=== PATIENT | female | born 1955 | race Caucasian/White ===

== ENCOUNTER 2018-08-24 19:11 | Emergency (ER) | payer OTHER ==
[2018-08-24] MEDS: KETOROLAC 60 MG INJ IM (21:04)
== END 2018-08-24 22:48 | disposition home or self-care (01) ==
LOC: FTE 19:11
DX: M50.320 Other cervical disc degeneration, mid-cervical region, unspecified level (principal); M54.12 Radiculopathy, cervical region; I10 Essential (primary) hypertension; Z87.891 Personal history of nicotine dependence
CPT/HCPCS: 72125; 96372; 99285-25

== ENCOUNTER 2018-11-21 01:25 | Emergency (ER) | payer OTHER ==
[2018-11-21 05:44] LABS: ADD MAN DIFF? NO
[2018-11-21 05:51] LABS: WHITE BLOOD COUNT 7.2 10^3/ul (4.8-10.8)
[2018-11-21 05:51] LABS: BASOPHIL # 0.1 10^3/ul (0.0-0.1); BASOPHILS % 0.8 % (0.0-2.0); EOSINOPHILS # 0.2 10^3/ul (0.0-0.5); EOSINOPHILS % 2.4 % (0.0-7.0); HEMATOCRIT 40.5 % (37.0-47.0); HEMOGLOBIN 13.1 g/dl (12.0-16.0); LYMPHOCYTES % 42.2 % (15.0-51.0); MEAN CORPUSCULAR HEMOGLOBIN 29.3 pg (29.0-33.0); MEAN CORPUSCULAR HGB CONC 32.3 g/dl (32.0-37.0); MEAN CORPUSCULAR VOLUME 90.6 fl (82.0-101.0); MEAN PLATELET VOLUME 11.2 fl (7.4-10.4); MONOCYTE # 0.4 10^3/ul (0.3-0.9); MONOCYTES % 5.6 % (0.0-11.0); NEUTROPHIL # 3.5 10^3/ul (1.6-7.5); NEUTROPHILS % 48.7 % (39.0-77.0); PLATELET COUNT 247 10^3/UL (140-415); RED BLOOD COUNT 4.47 10^6/ul (4.20-5.40); RED CELL DISTRIBUTION WIDTH 13.5 % (11.5-14.5)
[2018-11-21 06:07] LABS: BLOOD UREA NITROGEN 16 mg/dl (7-20); CALCIUM 10.3 mg/dl (8.4-10.2); CARBON DIOXIDE 32 mmol/L (21-31); CREATININE 0.82 mg/dl (0.44-1.00); Estimated GFR > 60 mL/min (>60); GLUCOSE 109 mg/dl (70-220); POTASSIUM 3.8 mmol/L (3.5-5.1); SODIUM 141 mmol/L (135-144)
[2018-11-21] MEDS: ASPIRIN 81 MG TAB PO (06:07)
[2018-11-21 06:09] LABS: ANION GAP 7 (5-13); CHLORIDE 102 mmol/L (97-110)
[2018-11-21 06:17] LABS: TROPONIN-I < 0.012 ng/ml (0.000-0.120)
[2018-11-21 07:25] LABS: D-DIMER 299.46 ng/ml (<460)
[2018-11-21 07:26] LABS: B-TYPE NATRIURETIC PEPTIDE 21 PG/ML (0-125)
== END 2018-11-21 09:22 | disposition home or self-care (01) ==
LOC: E/R 01:25
DX: R09.1 Pleurisy (principal); I10 Essential (primary) hypertension; E03.9 Hypothyroidism, unspecified
CPT/HCPCS: 36415; 71045; 80048; 82375; 83880; 84484; 85025; 85378; 93005; 99285-25